=== PATIENT | female | born 1985 | race Hispanic/Latino ===

== ENCOUNTER 2017-05-26 20:15 | Inpatient (IN) | payer BC, MEDICAID ==
[2017-05-26 20:26] VITALS: BMI 26.6
[2017-05-26 22:06] LABS: BASO % 0.3 % (0.0-2.0); EOS % 0.2 % (0.0-4.0); HEMOGLOBIN 13.7 g/dL (12.0-16.0); LYMPH # 2.7 K/uL (1.0-4.3); LYMPH % 21.4 % (20.0-40.0); MEAN CELL VOLUME 99.6 fl (81.0-99.0); MEAN CORPUSCULAR HEMOGLOBIN 33.6 pg (27.0-31.0); MEAN CORPUSCULAR HGB CONC 33.8 g/dL (33.0-37.0); MEAN PLATELET VOLUME 11.7 fl (7.2-11.7); MONO # 0.6 K/uL (0.0-0.8); MONO % 4.8 % (0.0-10.0); NEUT # 9.1 K/uL (1.8-7.0); NEUT % 73.3 % (50.0-75.0); RBC 4.06 Mil/uL (3.80-5.20); RED CELL DISTRIBUTION WIDTH 12.7 % (11.5-14.5); WHITE BLOOD COUNT 12.4 K/uL (4.8-10.8)
--- NOTE | 2017-05-27 06:43 | OBADHP ---
Datetime: 05/26/2017 22:30 Admit Comment, IP Provider: 32 yo with EGA of 40.4 presents for IOL for post dates. DOUG 017 confirmed on US. Denies: VB, LOF, CTX, CP/SOB/N/V +: FM PNC: Dr. Kwon Gynalejandro/Pap; Denies sti; PAP negative for HPV Mhx: recurrent UTI Surg: none Soc: denies: smoking, etoh, illicit drugs Rx: PNV NKDA FamHx: dementia, DM, BRCA PE: General: pleasant, in no acute distress HEENT: normocephalic, PERRLA; AAOx3 Heart: no murmurs, regular rate and rhythm, S1, S2 normal. Lungs: clear to auscultation bilaterally, no wheezing Abdomen: nontender, gravid CVA: negative Lower extremities: negative for pitting edema Vitals: 111/68 GBS:- ; ABO-Rh:O+ ; Ab:- ; HIV:- ; RPR:- ; GC/C:- ; Rubella:IM ; HbsAg:- ; TDap: 03/03/2017 32 yo with EGA of 40.4 presents for IOL for post dates. Admit to unit for IOL: type an screen, RPR, IV; Cervidil 0.3 mg/ hr 10 mg vaginal Case d/w Dr. Lona Leonardo MD Family Medicine, [facility]Y1 [facility] pt kd nd examined by me. agree with note.MAHNDO Pelvic Type - PN: Adequate Extremities - PN: Normal Abdomen - PN: Normal Back - PN: Normal Breast - PN: Not Done Lungs - PN: Normal Heart - PN: Normal Thyroid - PN: Not Done Neurologic - PN: Normal HEENT - PN: Normal General - PN: Normal Presentation-Admit: Vertex FHR - Baseline A Provider: 130 Gestation - Est Wks by US: 40.4 IP Hx Assessment: The History has been Reviewed and is Current Vital Signs Provider: Reviewed; Within Normal Limits IP Chief Complaint: Scheduled induction of labor NICHD Variability Prov Fetus A: Moderate 6-25bpm NICHD Accel Fetus A IP Provider: [id number] FHR Category Provider Fetus A: Category I NICHD Decel Fetus A IP Provider: None Dilatation, Provider: 0 Effacement, Provider: 0 Genitourinary Exam: Normal DTRs - PN: Not Done EGA AdmitDate IP: 40.4 IP Adm Impression: Term, intrauterine ; No Active Labor; Intact Membranes IP Admit Plan: Admit to unit; Initiate labor induction protocol
[2017-05-27] MEDS: Lactated Ringer's 1,000 ML IV SCH ×2 (11:45→12:45)
[2017-05-27] MEDS ORDERED: Fentanyl/Bupivacaine HCl 250 ML EPI ONE (12:27)
[2017-05-27] MEDS ORDERED: ePHEDrine 50 mg/ml Inj ONE (12:36)
[2017-05-27] MEDS ORDERED: Bupivacaine HCl 0.25% PF (10 ml) Inj ONE (12:38)
[2017-05-27] MEDS ORDERED: Oxytocin 30 UNITS in Sodium Chloride 0.9% 500 ML IV ONE (13:32)
--- NOTE | 2017-05-27 18:19 | OBDS ---
DELIVERY PERSONNEL Delivery Doctor: Vicki Kwon MD Scrub Nurse: Anabella Alcantar Skid Adzer: Magaly Lea RN Anesthesiologist: Dr. Leonard MATERNAL INFORMATION Delivery Anesthesia: Epidural Medications in Delivery: Pitocin 30 units Estimated Blood Loss (ml): 150 Placenta Cultured: No Maternal Complications: None Provider Comments: Delivered live baby boy at 1629 the baby was bulb suctioned on the perineum and t ransferred to the maternal chest. The cord was clamped and cut 3 vessels noted cord blood was obtaine d and sent to the lab. The placenta was delivered at 1633 intact, the estimated blood loss was 150 mL . There was a second-degree laceration which was repaired with 2-0 Rapide. The mother tolerated the p rocedure well and the baby went to the well baby nursery with 's of 9 and 9 weighing 3330 g LABOR SUMMARY EDC: 05/22/2017 00:00 No. Babies in Womb: 1 Attempted: No Labor Anesthesia: Epidural LABOR INFORMATION Reason for Induction: Postterm Complete Dilatation: 05/27/2017 14:55 Cervical Ripening Agents: Cervidil Oxytocin: N/A Group B Beta Strep: Negative Steroids Given: None Reason Steroids Not Administered: Not Applicable MEMBRANES Membranes Rupture Method: Artificial Rupture of Membranes: 05/27/2017 13:20 Length of Rupture (hrs): 3.15 Amniotic Fluid Color: Clear Amniotic Fluid Amount: Small Amniotic Fluid Odor: Normal STAGES OF LABOR Stage 2 hrs: 1 Stage 2 min: 34 Stage 3 hrs: 0 Stage 3 min: 4 VAGINAL DELIVERY Episiotomy: None Laceration Extension: Second Degree Laceration Type: Perineal Laceration Repair: Yes Initial Vag Sponge Count: 10 Final Vag Sponge Count: 10 Initial Vag Sharps Count: 3 Final Vag Sharps Count: 3 Sponge Count Correct: Yes Sharps Count Correct: Yes BABY A INFORMATION Infant Delivery Date/Time: 05/27/2017 16:29 Method of Delivery: Vaginal Born in Route : No : N/A Forceps: N/A Vacuum Extraction: N/A Shoulder Dystocia : No SHOULDER DYSTOCIA BABY A Infant Delivery Date/Time: 05/27/2017 16:29 PRESENTATION/POSITION BABY A Presentation: Cephalic Cephalic Presentation: Vertex Breech Presentation: N/A PLACENTA INFORMATION BABY A Placenta Delivery Time : 05/27/2017 16:33 Placenta Method of Delivery: Spontaneous Placenta Status: Delivered SCORES BABY A Heart Rate 1 min: >100 bpm Resp Effort 1 min: Good Cry Reflex Irritability 1 min: Cough or Sneeze or Pulls Away Muscle Tone 1 min: Active Motion Color 1 min: Body [place], Extremities Blue Resuscitation Effort 1 min: Tactile Stimulation SCORE 1 MIN: 9 Heart Rate 5 min: >100 bpm Resp Effort 5 min: Good Cry Reflex Irritability 5 min: Cough or Sneeze or Pulls Away Muscle Tone 5 min: Active Motion Color 5 min: Body [place], Extremities Blue Resuscitation Effort 5 min: Tactile Stimulation SCORE 5 MIN: 9 INFANT INFORMATION BABY A Gestational Age at Delivery: 40.0 Gestational Status: Term Infant Outcome : Liveborn Infant Condition : Stable Sex: Male IDENTIFICATION/MEDS BABY A ID Band Number: [id number] ID Band Location: Left Leg; Left Arm WEIGHT/LENGTH BABY A Birthweight (gms): 3330 Weight (lb): 7 Weight (oz): 5 CORD INFORMATION BABY A No. Cord Vessels: 3 Nuchal Cord : N/A Cord Blood Taken: No Infant Suction: None ASSESSMENT BABY A Infant Complications: Multiple Variable Decels; Meconium Physical Findings at Delivery: Within Normal Limits Respirations: Appears Normal Director Of Technology/ALS Called : No Care By: Delia Marrero Transferred To: Nursery
[2017-05-27] MEDS ORDERED: Oxycodone/Acetaminophen 5/325 mg Tab PO PRN (20:08)
[2017-05-28 06:05] LABS: HEMOGLOBIN 12.2 g/dL (12.0-16.0); MEAN CELL VOLUME 99.6 fl (81.0-99.0); MEAN CORPUSCULAR HGB CONC 33.2 g/dL (33.0-37.0); RBC 3.7 Mil/uL (3.80-5.20); RED CELL DISTRIBUTION WIDTH 12.9 % (11.5-14.5); WHITE BLOOD COUNT 14.6 K/uL (4.8-10.8)
[2017-05-28] MEDS ORDERED: Benzocaine/Menthol SPRAY TOP PRN (18:18)
--- NOTE | 2017-05-29 10:00 | OBPPN ---
Datetime: 05/28/2017 09:57 PP Pain Prov: Within normal limits PP Nausea Prov: Denies PP Flatus Prov: Yes PP Breasts Prov: Normal PP Heart Prov: Normal PP Lungs Prov: Normal PP Abdomen/Uterus Prov: Normal PP Lochia Prov: Normal PP Vulva/Perineum Prov: Normal PP CVA Tenderness Prov: Normal PP Extremities Prov: Normal PP Impression Prov: Normal progression PP Plan Prov: Continue present management PP Progress Note Prov: Postoperative day #1 status post normal spontaneous vaginal delivery, recover ing well Pain control Out of bed, ambulating Regular diet IP PP Procedures: None
--- NOTE | 2017-05-29 11:31 | OBDCSUM ---
Datetime: 05/29/2017 10:36 Discharged to, Provider: Home Follow up at, Provider: 4-6 weeks Disch Instr Activity: Normal activity (Annotations: Data stored by CPN on behalf of user) Disch Instr Diet: Regular Discharge Diagnosis, Provider: Term Delivered Discharge Time: 05/29/2017 12:00 Follow up in weeks, Provider: Benji Disch Referrals: None Disch Activity Restrictions: No sexual activity; Nothing in vagina - Comobabi, tampons, douche
--- NOTE | 2017-05-29 11:32 | OBPPN ---
Datetime: 05/29/2017 09:28 PP Pain Prov: Within normal limits PP Nausea Prov: Denies PP Flatus Prov: Yes PP BM Prov: Yes PP Breasts Prov: Normal PP Heart Prov: Normal PP Lungs Prov: Normal PP Abdomen/Uterus Prov: Normal PP Lochia Prov: Normal PP Vulva/Perineum Prov: Normal PP CVA Tenderness Prov: Normal PP Extremities Prov: Normal PP Progress Prov: Normal PP Impression Prov: Normal progression PP Plan Prov: Discharge PP Progress Note Prov: She feels fine A; S/P day 2 PLAN: dsicahge hoome and follwo up in 6w Vital Signs Provider PP: Reviewed; Within Normal Limits
[2017-05-29 18:34] VITALS: BP 129/79; PULSE 57; RESP 20; TEMP 98.1; O2SAT 100
== END 2017-05-29 14:00 | disposition home or self-care (01) | DRG 774 ==
LOC: H.EROB2 20:17 → H.L&D 20:29 → H.OB/GYN 05-27 19:58
PROVIDERS: ADMIT Obstetrics & Gynecology; ATTEND Obstetrics & Gynecology
PROC: 0KQM0ZZ Repair Perineum Muscle, Open Approach (ICD-10-PCS; principal; 2017-05-26)
PROC: 10E0XZZ Delivery of Products of Conception, External Approach (ICD-10-PCS; 2017-05-26)
PROC: 4A1HXCZ Monitoring of Products of Conception, Cardiac Rate, External Approach (ICD-10-PCS; 2017-05-26)
DX: O48.0 Post-term pregnancy (principal); O24.92 Unspecified diabetes mellitus in childbirth; O77.0 Labor and delivery complicated by meconium in amniotic fluid; O70.1 Second degree perineal laceration during delivery; O76 Abnormality in fetal heart rate and rhythm complicating labor and delivery; Z37.0 Single live birth; Z3A.40 40 weeks gestation of pregnancy